=== PATIENT | female | born 1990 | race Caucasian/White ===

== ENCOUNTER 2016-08-31 05:50 | Inpatient (IN) | payer MEDICAID ==
[2016-08-31] MEDS ORDERED: FENTANYL 100 MCG/2 ML VIAL IV PRN (06:14)
[2016-08-31] MEDS ORDERED: HOME MEDICATION LIST NEEDED 1 EA EACH MISC ONE (06:14)
[2016-08-31] MEDS ORDERED: OXYTOCIN/NORMAL SALINE 30 UNIT/500 ML BAG IV SCH (06:14)
[2016-08-31] MEDS ORDERED: FENTANYL 100 MCG/2 ML VIAL IV ONE (06:14)
[2016-08-31] MEDS ORDERED: MISOPROSTOL 200 MCG TABLET PO PRN ×2 (06:14)
[2016-08-31] MEDS ORDERED: ONDANSETRON HCL 4 MG/2 ML VIAL IV PRN (06:14)
[2016-08-31] MEDS ORDERED: LACTATED RINGERS 1,000 ML IV SCH (06:14)
[2016-08-31] MEDS: LIDOCAINE HCL/PF 1% 30 ML VIAL SUBCUT PRN ×2 (07:30→16:03)
[2016-08-31] MEDS ORDERED: MAGNESIUM HYDROXIDE 30 ML UDC PO PRN (09:03)
[2016-08-31] MEDS ORDERED: BENZOCAINE/LANOLIN/ALOE 1 SPRAY BOTTLE TP PRN (09:03)
[2016-08-31] MEDS ORDERED: LANOLIN CREAM 1 APP/7 GM TUBE TOPICAL PRN (09:03)
[2016-08-31] MEDS ORDERED: DIPHENHYDRAMINE 25 MG CAPSULE PO PRN (09:03)
[2016-08-31] MEDS ORDERED: IBUPROFEN 600 MG TABLET PO PRN (09:03)
[2016-08-31] MEDS ORDERED: HC ACETATE/PRAMOXINE HCL FOAM 1 APPLIC APP RC PRN (09:03)
[2016-08-31] MEDS ORDERED: ACETAMINOPHEN 325 MG TABLET PO PRN (09:03)
[2016-08-31] MEDS ORDERED: WITCH HAZEL 1 EACH MED..PAD TP PRN (09:03)
[2016-08-31] MEDS: DOCUSATE SODIUM 100 MG CAPSULE PO SCH ×2 (09:34→21:29)
[2016-08-31 21:33] VITALS: O2SAT 96
[2016-09-01 00:18] VITALS: RESP 16
--- NOTE | 2016-09-01 06:51 | DC SUMMARY: Obstetrical/GYN ---
Discharge Summary: Surg/OB Provider: Date of Admission: 08/31/16 Admitting Provider: Ria Arrington Attending Provider: Ria Arrington Discharging Provider: Ria Arrington Primary Care Provider: Discharge Date: 09/01/16 PPD#1 s/p uncomplicated vaginal delivery. Patient desires discharge to home. is going well. Lochia is light and voiding as usual. She is not having any problem. VSS Fundus firm. Ext negative. A/P Doing well. Home with precautions and follow up. All satisfied with this plan. Hospital Course: Ms. AZAR is a 25 year old female s/p uncomplicated vaginal delivery. She is doing well and desires discharge to home, she meets discharge criteria. Exam is normal. Home with precautions and follow up. All questions answered and all satisfied with this plan. 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 Discharge Exam - Latest Vital Signs and I&O Latest Vital Signs/I&O: Vital Signs Temp 36.4 C L 09/01/16 04:20 Pulse 73 09/01/16 04:20 Resp 16 09/01/16 04:20 BP 90/56 09/01/16 04:20 Pulse Ox 96 08/31/16 20:00 Intake & Output 08/31/16 09/01/16 09/01/16 17:59 05:59 17:59 Output Total 2400 Balance -2400 Weight 65.317 kg Output: Urine 2400 Other: Urine Color Straw Voiding Method Toilet Toilet Discharge Summary Data - Medication History Medication History: Home Medications Docosahexanoic Acid [Dha] 100 mg PO DAILY 08/31/16 Vit/Fe Fumarate/FA [ Rx 1] 1 tab PO DAILY 08/31/16 Inpatient Medications 08/31/16 09:03 Acetaminophen [Tylenol] 650 mg PO Q6H PRN Benzocaine/Lanolin/Aloe [Dermoplast [place]] 1 spray TP PRN PRN Diphenhydramine [Benadryl] 50 mg PO HS PRN Docusate Sodium [Colace] 100 mg PO Q12H Hc Acetate/Pramoxine HCl Foam [Proctofoam-Hc Foam] 1 applic RC PRN PRN Ibuprofen [Motrin] 600 mg PO Q6H PRN Lanolin Cream [Lansinoh] 1 daily TOPICAL PRN PRN Magnesium Hydroxide [Milk of Magnesia] 30 ml PO PRN PRN Witch Niharika [Tucks Take-Alongs] 1 each TP PRN PRN Procedures and tests throughout hospitalization: Pending Orders 08/15/16 16:04 Resuscitation Status Routine 08/31/16 06:14 Activity: Ambulate TOLERATED May use Jacuzzi PRN Straight Cath PRN 08/31/16 09:03 Admit: Inpatient Routine VTE Prophylaxis Scoring/ Ordering Routine May shower PRN Post Assessment PER PROTOCOL Vital Signs Q15MX4,Q30MX2,Q1HX2,Q4H UA W/ MICRO -CULTURE IF IND [URINE] Routine Acetaminophen [Tylenol] 650 mg PO Q6H PRN Benzocaine/Lanolin/Aloe [Dermoplast [place]] 1 spray TP PRN PRN Diphenhydramine [Benadryl] 50 mg PO HS PRN Docusate Sodium [Colace] 100 mg PO Q12H Hc Acetate/Pramoxine HCl Foam [Proctofoam-Hc Foam] 1 applic RC PRN PRN Ibuprofen [Motrin] 600 mg PO Q6H PRN Lanolin Cream [Lansinoh] 1 daily TOPICAL PRN PRN Magnesium Hydroxide [Milk of Magnesia] 30 ml PO PRN PRN Witch Niharika [Tucks Take-Alongs] 1 each TP PRN PRN 08/31/16 Breakfast Regular [DIET] 08/31/16 Dinner Special Meal (NLC)
[2016-09-01 08:58] VITALS: BP 105/66; PULSE 87; TEMP 97.3
[2016-09-01] MEDS: DOCUSATE SODIUM 100 MG CAPSULE PO SCH (10:03)
== END 2016-09-01 09:30 | disposition home or self-care (01) | DRG 775 ==
LOC: NLCPRO 05:50 → NLC 05:51 → NLCPRO 05:53
PROVIDERS: ADMIT Obstetrics & Gynecology; ATTEND Obstetrics & Gynecology
PROC: 0HQ9XZZ Repair Perineum Skin, External Approach (ICD-10-PCS; principal; 2016-08-31)
PROC: 10E0XZZ Delivery of Products of Conception, External Approach (ICD-10-PCS; principal; 2016-08-31)
DX: O70.0 First degree perineal laceration during delivery (principal); Z37.0 Single live birth